=== PATIENT | female | born 1990 | race African-American/Black ===

== ENCOUNTER 2022-05-09 10:30 | Inpatient (IN) | payer MEDICAID ==
[~2022-05-09] VITALS: Ht 162.6 cm; Wt 61.2 kg
[2022-05-09 10:50] VITALS: BP 122/80
[2022-05-09] MEDS ORDERED: NIFEdipine 10 MG CAPLF PO SCH (12:15)
[2022-05-09] MEDS: LACTATED RINGERS 1,000 ML IV SCH ×5 (12:23→23:20)
[2022-05-09 12:54] LABS: BASOPHILS % (AUTO) 0.2 % (0.0-2.0); EOSINOPHILS # (AUTO) 0.1 K/uL (0-0.4); EOSINOPHILS % (AUTO) 1.9 % (0.0-4.0); HEMATOCRIT 37.3 % (36-48); HEMOGLOBIN 12.2 g/dL (12.0-16.0); LYMPHOCYTES # (AUTO) 1.4 K/uL (2.5-16.5); MEAN CORPUSCULAR HEMOGLOBIN 29 pg (27-31); MEAN CORPUSCULAR HGB CONC 33 g/dL (33-37); MEAN CORPUSCULAR VOLUME 88.3 fL (80-94); MONOCYTES # (AUTO) 0.7 K/uL (0.8-1.0); MONOCYTES % (AUTO) 12.1 % (1.7-9.3); NEUTROPHILS # (AUTO) 3.8 K/uL (1.8-7.7); NEUTROPHILS % (AUTO) 62.8 % (42.2-75.2); PLATELET COUNT (AUTO) 194 K/uL (140-450); RED BLOOD CELL COUNT(AUTO) 4.23 MIL/uL (4.20-5.40); RED CELL DISTRIBUTION WIDTH 13.7 % (11.6-13.7)
[2022-05-09 13:14] LABS: ALBUMIN 2.8 g/dL (3.4-5.0); ANION GAP 12.2 (8-16); CARBON DIOXIDE 24.7 mmol/L (21-32); CREATININE 0.4 mg/dL (0.6-1.3); POTASSIUM 3.9 mmol/L (3.5-5.1); TOTAL BILIRUBIN 0.3 mg/dL (0.0-1.0)
[2022-05-09 14:23] LABS: APPEARANCE,URINE CLEAR (CLEAR); BILIRUBIN,URINE NEGATIVE (NEGATIVE); BLOOD, URINE NEGATIVE (NEGATIVE); COLOR,URINE YELLOW (YELLOW); LEUKOCYTE ESTERASE ,URINE NEGATIVE (NEGATIVE); NITRITE, URINE NEGATIVE (NEGATIVE); UGLUCOSE NEGATIVE (NEGATIVE)
[2022-05-09 15:10] LABS: PROTHROMBIN TIME 9.2 secs (10.8-13.4)
[2022-05-09] MEDS ORDERED: FERR-252 PO (17:48)
[2022-05-09] MEDS ORDERED: PNV91TAB10 PO (17:48)
[2022-05-09] MEDS: NIFEdipine 10 MG CAPLF PO SCH (18:12)
[2022-05-09 19:45] LABS: BARBITURATE, URINE NEGATIVE ng/ml (NEG <=200); BENZODIAZEPINE, URINE NEGATIVE ng/mL (NEG <=200); CANNABINOID, URINE POSITIVE ng/mL (NEG <=50); COCAINE, URINE NEGATIVE ng/mL (NEG <=300); OPIATE, URINE NEGATIVE ng/mL (NEG <=2000); PHENCYCLIDINE SCREEN,URINE NEGATIVE ng/mL (NEG <=25)
[2022-05-10] MEDS: NIFEdipine 10 MG CAPLF PO SCH ×4 (00:01→18:37)
[2022-05-10] MEDS: LACTATED RINGERS 1,000 ML IV SCH ×3 (02:59→16:58)
[2022-05-10 08:07] LABS: HEPATITIS B SURFACE ANTIGEN Negative (Negative)
--- NOTE | 2022-05-10 09:06 | NUR ---
PATIENT HAS BEEN SCREENED AND CATEGORIZED LOW NUTRITION RISK. PATIENT WILL BE SEEN WITHIN 7 DAYS OF ADMISSION. 05/15/[address]
[2022-05-10] MEDS ORDERED: ACETAMINOPHEN EXTRA STRENGTH 500 MG TAB PO PRN (21:40)
[2022-05-10] MEDS ORDERED: ACETAMINOPHEN EXTRA STRENGTH 500 MG TAB ONE (21:55)
[2022-05-10 22:55] LABS: APPEARANCE,URINE CLEAR (CLEAR); BILIRUBIN,URINE NEGATIVE (NEGATIVE); BLOOD, URINE NEGATIVE (NEGATIVE); COLOR,URINE YELLOW (YELLOW); LEUKOCYTE ESTERASE ,URINE NEGATIVE (NEGATIVE); NITRITE, URINE NEGATIVE (NEGATIVE); PH,URINE 7.5 (5.0-9.0); UGLUCOSE NEGATIVE (NEGATIVE)
[2022-05-11] MEDS: NIFEdipine 10 MG CAPLF PO SCH ×3 (00:01→11:51)
[2022-05-11] MEDS: LACTATED RINGERS 1,000 ML IV SCH ×3 (00:34→11:09)
[2022-05-11] MEDS ORDERED: AMPICILLIN 2,000 MG in NACL 0.9% 100 ML IV SCH (11:35)
[2022-05-11] MEDS ORDERED: AMPICILLIN 2,000 MG VIAL ONE (11:43)
== END 2022-05-11 13:16 | disposition short-term general hospital (02) | DRG 566 ==
LOC: MLD 10:30 → OBSVTOIN 20:30
PROVIDERS: ADMIT Obstetrics & Gynecology; ATTEND Obstetrics & Gynecology
DX: O36.8330 Maternal care for abnormalities of the fetal heart rate or rhythm, third trimester, not applicable or unspecified (principal); O60.03 Preterm labor without delivery, third trimester; F32.9 Major depressive disorder, single episode, unspecified; O99.343 Other mental disorders complicating pregnancy, third trimester; Z3A.29 29 weeks gestation of pregnancy; Z59.00 Homelessness unspecified; Z90.49 Acquired absence of other specified parts of digestive tract
CPT/HCPCS: 36415; 76805; 76819; 80053; 80305; 81003; 85025; 85384; 85610; 85730; 86592; 86762; 86886; 86900; 86901; 87340; J0290; Q0092